=== PATIENT | male | born 1950 | race Caucasian/White ===

== ENCOUNTER → 2017-10-22 | Outpatient (CLI) | payer MEDICARE ==
[~2017-10-22] MED LIST: ASPI-555 PO; ATOR20TA65 PO; BLUE500T PO; FURO20TA6 PO; LOSA50TA37 PO; METO25TA6 PO; POTA8CAP10 PO; REGADENOSON 0.4 MG/5 ML PF SYG IVP SCH; TRAM50TA4 PO
== END | disposition home or self-care (01) ==
LOC: SHCH 09:01
PROVIDERS: ATTEND Internal Medicine Cardiovascular Disease
DX: I10 Essential (primary) hypertension (principal)
CPT/HCPCS: 78452; 93017; 96374; A9500 ×2; J2785

== ENCOUNTER 2017-11-23 05:52 | Inpatient (IN) | payer MEDICARE ==
[2017-11-19 16:38] VITALS: BP 182/89
[2017-11-19 16:44] LABS: BASOPHILS % (AUTO) 0.5 % (0.0-5.0); EOSINOPHILS % (AUTO) 0.7 % (0.0-8.0); HEMATOCRIT 46.2 % (42-54); MEAN CORPUSCULAR HEMOGLOBIN 31.5 pg (27.0-33.0); MEAN CORPUSCULAR HGB CONC 33.8 g/dL (32.0-36.0); MEAN CORPUSCULAR VOLUME 93.3 fL (79-99); MONOCYTES % (AUTO) 6.3 % (3.0-13.0); NEUTROPHILS % (AUTO) 69.5 % (40.0-77.0); PLATELET COUNT (AUTO) 257 K/uL (130-400); RED BLOOD CELL COUNT(AUTO) 4.95 MIL/uL (4.50-6.20); RED CELL DISTRIBUTION WIDTH 15.8 % (11.0-15.5); WHITE BLOOD COUNT (AUTO) 12.2 K/uL (4.8-10.8)
[2017-11-19 16:46] LABS: APPEARANCE,URINE Clear (CLEAR); BILIRUBIN,URINE Negative (NEGATIVE); COLOR,URINE Yellow (YELLOW); GLUCOSE, URINE (UA) Negative (NEGATIVE); KETONES,URINE Negative (NEGATIVE); LEUKOCYTE ESTERASE ,URINE Negative (NEGATIVE); NITRATE,URINE Negative (NEGATIVE); OCCULT BLOOD,URINE Negative (NEGATIVE); PH,URINE 5.5 (5.0-8.0); PROTEIN,URINE Negative (NEGATIVE); UROBILINOGEN,URINE 0.2 mg/dL (0.2-1.0)
[2017-11-19 16:56] LABS: CREATININE 1.1 mg/dL (0.5-1.5); POTASSIUM 4.2 mmol/L (3.5-5.1)
[2017-11-19 17:02] LABS: PARTIAL THROMBOPLASTIN TIME 31.6 SEC (26.3-35.5); PROTHROMBIN TIME 10.5 SEC (9.6-11.6)
[2017-11-23] VITALS (14 sets, daily range): BP systolic 116–174; BP diastolic 71–97
[~2017-11-23] VITALS: Ht 175.3 cm; Wt 86.5 kg
[~2017-11-23 05:52] MED LIST changes: -ATOR20TA65 PO; -FURO20TA6 PO; -METO25TA6 PO; -POTA8CAP10 PO; -REGADENOSON 0.4 MG/5 ML PF SYG IVP SCH; -TRAM50TA4 PO
[2017-11-23] MEDS ORDERED: SODIUM CHLORIDE 0.9% 1000ML 1,000 ML IV ONE (07:42)
[2017-11-23] MEDS ORDERED: NITROGLYCERIN 5 MG/ML 10 ML VIAL IV ONE (09:07)
[2017-11-23] MEDS ORDERED: LIDOCAINE HCL 1% 20 ML VIAL ONE (09:07)
[2017-11-23] MEDS ORDERED: BIVALIRUDIN 250 MG/VIAL IV ONE (09:07)
[2017-11-23] MEDS ORDERED: HEPARIN SODIUM 1000UNIT/ML 10ML VIAL ONE (09:07)
[2017-11-23] MEDS ORDERED: IOPAMIDOL-370 100 ML VIAL IV ONE ×2 (09:07)
[2017-11-23] MEDS ORDERED: ISOVUE-370 50ML VIAL IV ONE (09:07)
[2017-11-23] MEDS ORDERED: SODIUM CHLORIDE 0.9% 1000ML 1,000 ML IV SCH (10:07)
[2017-11-23] MEDS ORDERED: METO25TA6 PO (10:13)
[2017-11-23] MEDS: METOPROLOL TARTRATE 25 MG TAB PO SCH ×2 (10:57→20:57)
[2017-11-23] MEDS: WATER FOR INJECTION,STERILE 20 ML VIAL IJ SCH (13:30)
[2017-11-23] MEDS: CEFUROXIME SODIUM 1.5 GM VIAL IVP SCH (13:30)
[2017-11-23 14:40] LABS: HEMOGLOBIN A1C 6.3 % (4.0-6.0)
[2017-11-23 14:45] LABS: CHOLESTEROL 248 mg/dL (<200); HDL CHOLESTEROL 48 mg/dL (29-71); LDL DIRECT 163 mg/dL (0-99); TRIGLYCERIDES 324 mg/dL (30-200)
[2017-11-24] VITALS (29 sets, daily range): BP systolic 81–177; BP diastolic 45–82
[2017-11-24] MEDS ORDERED: ACETAMINOPHEN 325 MG TAB PO PRN ×2 (01:15→10:00)
[2017-11-24] MEDS ORDERED: POTASSIUM CHLORIDE 20MEQ/100ML 100 ML IV PRN (01:15)
[2017-11-24] MEDS ORDERED: LIDOCAINE HCL-MPF 1% 2ML VIAL IVP PRN (01:15)
[2017-11-24] MEDS ORDERED: ONDANSETRON HCL MDV 20ML 2 MG/ML VIAL IVP PRN (01:15)
[2017-11-24] MEDS ORDERED: MORPHINE SULFATE 2 MG/ML 1ML SYG IVP PRN ×2 (01:15)
[2017-11-24] MEDS ORDERED: POTASSIUM CHLORIDE 20 MEQ ERTAB PO PRN (01:15)
[2017-11-24] MEDS ORDERED: LACTULOSE 20 GM/30 ML UDCUP PO PRN (01:15)
[2017-11-24] MEDS ORDERED: POTASSIUM CHLORIDE 10% ELIXIR 20 MEQ/15 ML UDCUP PO PRN (01:15)
[2017-11-24 04:53] LABS: BASOPHILS % (AUTO) 0.1 % (0.0-5.0); EOSINOPHILS % (AUTO) 1.5 % (0.0-8.0); HEMATOCRIT 44.5 % (42-54); LYMPHOCYTES % (AUTO) 29.3 % (21.0-51.0); MEAN CORPUSCULAR HEMOGLOBIN 31.9 pg (27.0-33.0); MEAN CORPUSCULAR HGB CONC 34.4 g/dL (32.0-36.0); MEAN CORPUSCULAR VOLUME 92.8 fL (79-99); MONOCYTES % (AUTO) 8.3 % (3.0-13.0); NEUTROPHILS % (AUTO) 60.8 % (40.0-77.0); NUCLEATED RED BLOOD CELLS 0.1 % (0.0-0.19); PLATELET COUNT (AUTO) 235 K/uL (130-400); WHITE BLOOD COUNT (AUTO) 8.7 K/uL (4.8-10.8)
[2017-11-24 04:54] LABS: INR 1.02 (0.85-1.15); PARTIAL THROMBOPLASTIN TIME 31.1 SEC (26.3-35.5); PROTHROMBIN TIME 10.7 SEC (9.6-11.6)
[2017-11-24 05:03] LABS: ALBUMIN 3.6 g/dL (3.5-5.0); BILIRUBIN,TOTAL 0.7 mg/dL (0.2-1.0); CREATININE 1.1 mg/dL (0.5-1.5); POTASSIUM 4.1 mmol/L (3.5-5.1); TOTAL PROTEIN, SERUM 7.4 g/dL (6.0-8.3)
[2017-11-24] MEDS ORDERED: PAPAVERINE HCL 30 MG/ML 2ML VIAL ONE (07:20)
[2017-11-24] MEDS ORDERED: SODIUM CHLORIDE 0.9% 1000ML 1,000 ML IV ONE (07:20)
[2017-11-24] MEDS ORDERED: OCTYL 2-CYANOACRYLATE 1 EACH TP ONE (07:20)
[2017-11-24] MEDS ORDERED: BACITRACIN 50,000 UNIT VIAL ONE (07:21)
[2017-11-24] MEDS ORDERED: AMIODARONE HCL 900MG/18ML IV ONE (07:40)
[2017-11-24] MEDS ORDERED: HEPARIN SODIUM 1000UNIT/ML 10ML VIAL ONE ×2 (07:40→08:10)
[2017-11-24] MEDS ORDERED: PROPOFOL 10 MG/ML 20ML VIAL IV ONE (07:40)
[2017-11-24] MEDS ORDERED: ROCURONIUM BROMIDE 10MG/1ML 5ML VL ONE (07:40)
[2017-11-24] MEDS ORDERED: PROTAMINE SULFATE 10 MG/ML 25ML VIAL IV ONE (07:40)
[2017-11-24] MEDS ORDERED: AMINOCAPROIC ACID 250 MG/ML 20 ML VIAL IV ONE (07:40)
[2017-11-24] MEDS ORDERED: LIDOCAINE PF 2% 5ML ABBOJECT ONE (07:40)
[2017-11-24] MEDS ORDERED: EPINEPHRINE 1 MG/ML AMPULE ONE (07:40)
[2017-11-24] MEDS ORDERED: ESMOLOL HCL 10 MG/ML 10 ML VIAL ONE (07:40)
[2017-11-24] MEDS ORDERED: MILRINONE-D5W 20 MG/100 ML 0 ML IV ONE (07:40)
[2017-11-24] MEDS ORDERED: NOREPINEPHRINE BITARTRATE 1 MG/1 ML ML IV ONE (07:40)
[2017-11-24] MEDS ORDERED: GLYCOPYRROLATE 0.2 MG/ML 5 ML VIAL ONE (07:40)
[2017-11-24] MEDS ORDERED: MIDAZOLAM HCL 1 MG/ML 5ML VIAL ONE (07:41)
[2017-11-24] MEDS ORDERED: FENTANYL CITRATE PF 50 MCG/1 ML 5ML AMP IV ONE (07:42)
[2017-11-24] MEDS ORDERED: NITROGLYCERIN 50 MG/D5% WATER 1 BOT ONE (07:44)
[2017-11-24] MEDS: WATER FOR INJECTION,STERILE 20 ML VIAL IJ SCH (07:48)
[2017-11-24] MEDS: CEFUROXIME SODIUM 1.5 GM VIAL IVP SCH ×3 (07:48→18:26)
[2017-11-24] MEDS ORDERED: THROMBIN-JMI 5000 UNIT/VIAL TP ONE (08:10)
[2017-11-24 08:32] LABS: ABG BASE EXCESS -4.3 mmol/L (-2.0-3.0); ABG HCO3 20.1 mmol/L (21.0-28.0); ABG OXYGEN SATURATION 99.1 % (95.0-99.0); ABG PCO2 35 mmHg (35-48)
[2017-11-24] MEDS ORDERED: SODIUM BICARB 50MEQ 50ML VIAL ONE ×2 (08:38→11:53)
[2017-11-24] MEDS ORDERED: FAMOTIDINE 20MG TAB 20 MG TAB PO SCH (09:00)
[2017-11-24] MEDS ORDERED: CEFUROXIME 1.5GM+NS 100ML 100 ML IV SCH ×2 (09:00→18:00)
[2017-11-24 09:24] LABS: ABG BASE EXCESS -1.5 mmol/L (-2.0-3.0); ABG HCO3 23.1 mmol/L (21.0-28.0); ABG OXYGEN SATURATION 99.3 % (95.0-99.0); ABG PCO2 39 mmHg (35-48)
[2017-11-24] MEDS ORDERED: SODIUM CHLORIDE 0.9% 500ML 500 ML IV SCH (09:56)
[2017-11-24] MEDS ORDERED: INSULIN REGULAR, HUMAN 3ML 100 UNIT in SODIUM CHLORIDE 0.9% 99 ML IV SCH ×2 (10:00)
[2017-11-24] MEDS ORDERED: DEXTROSE 50%-WATER 50 ML DISP.SYRIN IV PRN (10:00)
[2017-11-24] MEDS ORDERED: ONDANSETRON HCL 4 MG/2 ML VIAL IV PRN (10:00)
[2017-11-24] MEDS ORDERED: POTASSIUM PHOS 15 mMOL+NS250ML 250 ML IV PRN (10:00)
[2017-11-24] MEDS ORDERED: CALCIUM GLUCONATE 1 GM in SODIUM CHLORIDE 0.9% 50 ML IV PRN (10:00)
[2017-11-24] MEDS ORDERED: NICARDIPINE HCL 100 MG in SODIUM CHLORIDE 0.9% 100 ML IV PRN (10:00)
[2017-11-24] MEDS ORDERED: MAGNESIUM 2GM PREMIX 50ML 50 ML IV PRN (10:00)
[2017-11-24] MEDS ORDERED: GLUCAGON 1MG KIT 1 MG ML IM PRN (10:00)
[2017-11-24] MEDS ORDERED: SODIUM CHLORIDE 0.9% 250 ML IV PRN (10:00)
[2017-11-24] MEDS ORDERED: AMINOCAPROIC ACID 15,000 MG in SODIUM CHLORIDE 0.9% 250 ML IV SCH (10:00)
[2017-11-24] MEDS ORDERED: SODIUM CHLORIDE 0.9% 1000ML 1,000 ML IV SCH (10:00)
[2017-11-24] MEDS ORDERED: PROPOFOL 1000 MG/100 ML 100 ML IV PRN (10:00)
[2017-11-24] MEDS ORDERED: SODIUM BICARB 8.4% 50ML SYRINGE IV PRN (10:00)
[2017-11-24] MEDS ORDERED: SODIUM CHLORIDE 0.9% 10 ML VIAL IVP PRN (10:00)
[2017-11-24] MEDS ORDERED: ACETAMINOPHEN 650 MG SUPPOSITORY RC PRN (10:00)
[2017-11-24] MEDS ORDERED: NITROGLYCERIN 50 MG/D5% WATER 250 BOT IV SCH (10:00)
[2017-11-24] MEDS ORDERED: NOREPINEPHRINE 4MG/NS 250ML 250 ML IV PRN (10:00)
[2017-11-24] MEDS ORDERED: EPINEPHRINE 2 MG in SODIUM CHLORIDE 0.9% 250 ML IV PRN (10:00)
[2017-11-24] MEDS ORDERED: MORPHINE SULFATE 4 MG/1ML SYG IV PRN (10:00)
[2017-11-24] MEDS ORDERED: MORPHINE SULFATE 2 MG/ML 1ML SYG IV PRN (10:00)
[2017-11-24] MEDS ORDERED: ALBUMIN (HUMAN) 5% 250 ML IV PRN (10:00)
[2017-11-24] MEDS ORDERED: ONDANSETRON HCL MDV 20ML 2 MG/ML VIAL IV PRN (10:11)
[2017-11-24] MEDS ORDERED: SODIUM BICARB 8.4% 50ML SYRINGE ONE ×3 (10:33→10:55)
[2017-11-24 10:47] LABS: ABG BASE EXCESS -13.3 mmol/L (-2.0-3.0); ABG OXYGEN SATURATION 99.1 % (95.0-99.0); ABG PCO2 37 mmHg (35-48)
[2017-11-24 11:08] LABS: ABG BASE EXCESS 0.6 mmol/L (-2.0-3.0); ABG HCO3 24.7 mmol/L (21.0-28.0); ABG OXYGEN SATURATION 98.8 % (95.0-99.0); ABG PCO2 38 mmHg (35-48)
[2017-11-24] MEDS ORDERED: DURAMORPH PF1 MG/ML 10ML AMP IV ONE (11:09)
[2017-11-24 11:51] LABS: ABG BASE EXCESS -7.3 mmol/L (-2.0-3.0); ABG HCO3 19.2 mmol/L (21.0-28.0); ABG OXYGEN SATURATION 93.3 % (95.0-99.0); ABG PCO2 42 mmHg (35-48)
[2017-11-24 12:00] LABS: HEMATOCRIT 40.7 % (42-54); MEAN CORPUSCULAR HEMOGLOBIN 31.2 pg (27.0-33.0); MEAN CORPUSCULAR VOLUME 94.6 fL (79-99); NUCLEATED RED BLOOD CELLS 0.1 % (0.0-0.19); PLATELET COUNT (AUTO) 258 K/uL (130-400); RED CELL DISTRIBUTION WIDTH 15.4 % (11.0-15.5); WHITE BLOOD COUNT (AUTO) 27.3 K/uL (4.8-10.8)
[2017-11-24 12:16] LABS: CREATININE 1.5 mg/dL (0.5-1.5); MAGNESIUM 1.9 mg/dL (1.80-2.40); PHOSPHORUS 5.7 mg/dL (2.5-4.9); POTASSIUM 3.5 mmol/L (3.5-5.1)
[2017-11-24] MEDS: POTASSIUM CHLORIDE 20MEQ/100ML 100 ML IV PRN ×4 (13:05→23:49)
[2017-11-24 15:06] LABS: ABG BASE EXCESS 0.7 mmol/L (-2.0-3.0); ABG HCO3 25.1 mmol/L (21.0-28.0); ABG OXYGEN SATURATION 96.8 % (95.0-99.0); ABG PCO2 40 mmHg (35-48)
[2017-11-24] MEDS: HYDROCODONE/ACETAMINOPHEN 5/325 MG TAB PO PRN ×2 (16:51→21:30)
[2017-11-24 22:05] LABS: MAGNESIUM 2.3 mg/dL (1.80-2.40); POTASSIUM 3.8 mmol/L (3.5-5.1)
[2017-11-25] VITALS (24 sets, daily range): BP systolic 93–114; BP diastolic 52–72
[2017-11-25] MEDS: HYDROCODONE/ACETAMINOPHEN 5/325 MG TAB PO PRN ×3 (03:19→11:48)
[2017-11-25 04:22] LABS: HEMATOCRIT 37.5 % (42-54); MEAN CORPUSCULAR HEMOGLOBIN 33.2 pg (27.0-33.0); MEAN CORPUSCULAR HGB CONC 35.6 g/dL (32.0-36.0); MEAN CORPUSCULAR VOLUME 93.1 fL (79-99); PLATELET COUNT (AUTO) 222 K/uL (130-400); RED BLOOD CELL COUNT(AUTO) 4.03 MIL/uL (4.50-6.20); RED CELL DISTRIBUTION WIDTH 15.8 % (11.0-15.5); WHITE BLOOD COUNT (AUTO) 18.5 K/uL (4.8-10.8)
[2017-11-25 05:06] LABS: CREATININE 1.2 mg/dL (0.5-1.5); MAGNESIUM 2.3 mg/dL (1.80-2.40); PHOSPHORUS 3.2 mg/dL (2.5-4.9); POTASSIUM 3.9 mmol/L (3.5-5.1)
[2017-11-25] MEDS: POTASSIUM CHLORIDE 20MEQ/100ML 100 ML IV PRN (05:45)
[2017-11-25] MEDS: CEFUROXIME SODIUM 1.5 GM VIAL IVP SCH ×2 (05:45→17:32)
[2017-11-25] MEDS: PANTOPRAZOLE SODIUM 40 MG TABLET.DR PO SCH (09:05)
[2017-11-25] MEDS ORDERED: KETOROLAC TROMETHAMINE 15MG/ML IM PRN (13:15)
[2017-11-25] MEDS ORDERED: KETOROLAC TROMETHAMINE 15MG/ML ONE (13:23)
[2017-11-25] MEDS: KETOROLAC TROMETHAMINE 15MG/ML IV SCH ×2 (13:25→18:07)
[2017-11-25] MEDS: IPRATROPIUM/ALBUTEROL SULFATE 3 ML SOLUTION IH SCH ×2 (18:45→23:18)
[2017-11-25] MEDS: ATORVASTATIN CALCIUM 20 MG TABLET PO SCH (20:28)
[2017-11-26] VITALS (12 sets, daily range): BP systolic 86–131; BP diastolic 54–77
[2017-11-26] MEDS: KETOROLAC TROMETHAMINE 15MG/ML IV SCH ×4 (01:01→20:31)
[2017-11-26 04:52] LABS: HEMATOCRIT 35.1 % (42-54); MEAN CORPUSCULAR HEMOGLOBIN 31.5 pg (27.0-33.0); MEAN CORPUSCULAR HGB CONC 33.7 g/dL (32.0-36.0); MEAN CORPUSCULAR VOLUME 93.6 fL (79-99); PLATELET COUNT (AUTO) 168 K/uL (130-400); RED BLOOD CELL COUNT(AUTO) 3.75 MIL/uL (4.50-6.20); RED CELL DISTRIBUTION WIDTH 15.8 % (11.0-15.5); WHITE BLOOD COUNT (AUTO) 17.6 K/uL (4.8-10.8)
[2017-11-26 05:07] LABS: CREATININE 1.2 mg/dL (0.5-1.5); POTASSIUM 3.7 mmol/L (3.5-5.1)
[2017-11-26] MEDS: IPRATROPIUM/ALBUTEROL SULFATE 3 ML SOLUTION IH SCH ×4 (06:37→23:38)
[2017-11-26] MEDS: TRAMADOL HCL 50 MG TABLET PO PRN (07:31)
[2017-11-26] MEDS: PANTOPRAZOLE SODIUM 40 MG TABLET.DR PO SCH (08:37)
[2017-11-26] MEDS: ASPIRIN 81MG TAB.CHEW PO SCH (08:37)
[2017-11-26] MEDS ORDERED: CALCIUM GLUCONATE 1 GM/10 ML VIAL IV SCH (09:15)
[2017-11-26] MEDS: ATORVASTATIN CALCIUM 20 MG TABLET PO SCH (20:30)
[2017-11-26] MEDS: METOPROLOL TARTRATE 25 MG TAB PO SCH (20:31)
[2017-11-27 03:35] LABS: HEMATOCRIT 33.2 % (42-54); MEAN CORPUSCULAR HEMOGLOBIN 32.8 pg (27.0-33.0); MEAN CORPUSCULAR HGB CONC 35.3 g/dL (32.0-36.0); PLATELET COUNT (AUTO) 154 K/uL (130-400); RED BLOOD CELL COUNT(AUTO) 3.57 MIL/uL (4.50-6.20); WHITE BLOOD COUNT (AUTO) 15.1 K/uL (4.8-10.8)
[2017-11-27 03:46] LABS: CREATININE 1.1 mg/dL (0.5-1.5); POTASSIUM 3.4 mmol/L (3.5-5.1)
[2017-11-27 03:57] VITALS: BP 113/73
[2017-11-27] MEDS: KETOROLAC TROMETHAMINE 15MG/ML IV SCH ×2 (04:09→08:17)
[2017-11-27] MEDS: IPRATROPIUM/ALBUTEROL SULFATE 3 ML SOLUTION IH SCH ×4 (06:40→23:55)
[2017-11-27] MEDS ORDERED: LIDOCAINE HCL-MPF 1% 2ML VIAL IVP PRN (06:45)
[2017-11-27] MEDS ORDERED: POTASSIUM CHLORIDE 10% ELIXIR 20 MEQ/15 ML UDCUP PO PRN (06:45)
[2017-11-27] MEDS ORDERED: POTASSIUM CHLORIDE 20MEQ/100ML 100 ML IV PRN (06:45)
[2017-11-27 07:18] VITALS: BP 90/60
[2017-11-27] MEDS: ASPIRIN 81MG TAB.CHEW PO SCH (08:17)
[2017-11-27] MEDS: PANTOPRAZOLE SODIUM 40 MG TABLET.DR PO SCH (08:17)
[2017-11-27] MEDS: METOPROLOL TARTRATE 25 MG TAB PO SCH ×2 (08:18→20:22)
[2017-11-27] MEDS: ENOXAPARIN SODIUM 60 MG/0.6 ML SQ SCH (08:24)
[2017-11-27] MEDS: POTASSIUM CHLORIDE 20 MEQ ERTAB PO PRN ×2 (10:56→11:57)
[2017-11-27] MEDS ORDERED: ALBUMIN (HUMAN) 25% 50 ML IV SCH (11:00)
[2017-11-27 11:18] VITALS: BP 89/56
[2017-11-27] MEDS: ACETYLCYSTEINE 20% 200MG/ML 4ML VIAL IH SCH ×2 (11:24→23:55)
[2017-11-27] MEDS ORDERED: FUROSEMIDE 20 MG TABLET PO SCH (12:00)
[2017-11-27 15:40] VITALS: BP 92/55
[2017-11-27 20:03] VITALS: BP 110/61
[2017-11-27] MEDS: ATORVASTATIN CALCIUM 20 MG TABLET PO SCH (20:21)
[2017-11-28] VITALS (7 sets, daily range): BP systolic 102–125; BP diastolic 65–78
[2017-11-28 03:54] LABS: HEMATOCRIT 31.8 % (42-54); MEAN CORPUSCULAR HEMOGLOBIN 31.9 pg (27.0-33.0); MEAN CORPUSCULAR HGB CONC 34.1 g/dL (32.0-36.0); MEAN CORPUSCULAR VOLUME 93.4 fL (79-99); PLATELET COUNT (AUTO) 171 K/uL (130-400); RED BLOOD CELL COUNT(AUTO) 3.41 MIL/uL (4.50-6.20); RED CELL DISTRIBUTION WIDTH 15.1 % (11.0-15.5); WHITE BLOOD COUNT (AUTO) 11.3 K/uL (4.8-10.8)
[2017-11-28 04:06] LABS: MAGNESIUM 1.9 mg/dL (1.80-2.40); POTASSIUM 3.8 mmol/L (3.5-5.1)
[2017-11-28] MEDS: TRAMADOL HCL 50 MG TABLET PO PRN ×2 (06:06→18:44)
[2017-11-28] MEDS: IPRATROPIUM/ALBUTEROL SULFATE 3 ML SOLUTION IH SCH ×4 (06:33→23:32)
[2017-11-28] MEDS: ACETYLCYSTEINE 20% 200MG/ML 4ML VIAL IH SCH (06:33)
[2017-11-28] MEDS: ASPIRIN 81MG TAB.CHEW PO SCH (07:44)
[2017-11-28] MEDS: PANTOPRAZOLE SODIUM 40 MG TABLET.DR PO SCH (07:44)
[2017-11-28] MEDS: METOPROLOL TARTRATE 25 MG TAB PO SCH ×2 (07:44→20:15)
[2017-11-28] MEDS: ENOXAPARIN SODIUM 60 MG/0.6 ML SQ SCH (07:45)
[2017-11-28] MEDS ORDERED: FUROSEMIDE 20 MG TABLET PO SCH (09:00)
[2017-11-28] MEDS ORDERED: POTASSIUM CHLORIDE 20 MEQ ERTAB PO SCH (09:00)
[2017-11-28] MEDS ORDERED: CALCIUM GLUCONATE 1 GM in DEXTROSE 5%-WATER 50 ML IV SCH (11:45)
[2017-11-28] MEDS ORDERED: ACETYLCYSTEINE 20% 200MG/ML 4ML VIAL IH SCH (14:00)
[2017-11-28] MEDS ORDERED: COMPOUND PO MISCELLANEOUS 1 EACH MISC MISC PRN (15:45)
[2017-11-28] MEDS ORDERED: ACETYLCYSTEINE 20% 200MG/ML 4ML VIAL ONE (18:06)
[2017-11-28] MEDS: FUROSEMIDE 20 MG TABLET PO SCH (20:14)
[2017-11-28] MEDS: ATORVASTATIN CALCIUM 20 MG TABLET PO SCH (20:14)
[2017-11-28] MEDS: POTASSIUM CHLORIDE 20 MEQ ERTAB PO SCH (20:14)
[2017-11-28] MEDS ORDERED: CALCIUM GLUCONATE 1 GM/10 ML VIAL IV SCH (21:00)
[2017-11-28] MEDS: ACETYLCYSTEINE 10% 100MG/ML 4ML VIAL PO SCH (23:32)
[2017-11-29] MEDS: TRAMADOL HCL 50 MG TABLET PO PRN ×4 (00:07→20:49)
[2017-11-29 03:35] VITALS: BP 106/69
[2017-11-29] MEDS: ACETYLCYSTEINE 10% 100MG/ML 4ML VIAL PO SCH ×2 (06:00→12:09)
[2017-11-29] MEDS: IPRATROPIUM/ALBUTEROL SULFATE 3 ML SOLUTION IH SCH ×4 (06:18→23:23)
[2017-11-29 07:05] VITALS: BP 114/73
[2017-11-29] MEDS: ENOXAPARIN SODIUM 60 MG/0.6 ML SQ SCH (07:19)
[2017-11-29] MEDS: FUROSEMIDE 20 MG TABLET PO SCH ×2 (07:19→20:40)
[2017-11-29] MEDS: POTASSIUM CHLORIDE 20 MEQ ERTAB PO SCH ×2 (07:19→20:40)
[2017-11-29] MEDS: PANTOPRAZOLE SODIUM 40 MG TABLET.DR PO SCH (07:19)
[2017-11-29] MEDS: ASPIRIN 81MG TAB.CHEW PO SCH (07:19)
[2017-11-29] MEDS: METOPROLOL TARTRATE 25 MG TAB PO SCH ×2 (07:19→20:41)
[2017-11-29] MEDS: ACETYLCYSTEINE 20% 200MG/ML 4ML VIAL IH SCH ×3 (10:53→23:23)
[2017-11-29] MEDS ORDERED: ACETYLCYSTEINE 20% 200MG/ML 4ML VIAL ONE (11:18)
[2017-11-29 11:55] VITALS: BP 108/48
[2017-11-29 15:50] VITALS: BP 105/71
[2017-11-29] MEDS ORDERED: CALCIUM GLUCONATE 1 GM/10 ML VIAL IV SCH (18:45)
[2017-11-29] MEDS ORDERED: CALCIUM GLUCONATE 1 GM in SODIUM CHLORIDE 0.9% 50 ML IV SCH (19:00)
[2017-11-29 19:24] VITALS: BP 116/57
[2017-11-29] MEDS: ATORVASTATIN CALCIUM 20 MG TABLET PO SCH (20:40)
[2017-11-29 23:54] VITALS: BP 112/65
[2017-11-30 03:30] VITALS: BP 105/69
[2017-11-30 04:00] LABS: POTASSIUM 4.2 mmol/L (3.5-5.1)
[2017-11-30] MEDS: IPRATROPIUM/ALBUTEROL SULFATE 3 ML SOLUTION IH SCH ×3 (06:33→18:18)
[2017-11-30] MEDS ORDERED: FURO20TA6 PO (07:26)
[2017-11-30] MEDS ORDERED: ATOR20TA65 PO (07:26)
[2017-11-30] MEDS ORDERED: TRAM50TA4 PO (07:26)
[2017-11-30] MEDS ORDERED: METO25TA6 PO (07:27)
[2017-11-30] MEDS ORDERED: POTA8CAP10 PO (07:28)
[2017-11-30 07:47] VITALS: BP 116/72
[2017-11-30] MEDS: FUROSEMIDE 20 MG TABLET PO SCH (08:31)
[2017-11-30] MEDS: ASPIRIN 81MG TAB.CHEW PO SCH (08:31)
[2017-11-30] MEDS: PANTOPRAZOLE SODIUM 40 MG TABLET.DR PO SCH (08:31)
[2017-11-30] MEDS: ENOXAPARIN SODIUM 60 MG/0.6 ML SQ SCH (08:32)
[2017-11-30] MEDS: POTASSIUM CHLORIDE 20 MEQ ERTAB PO SCH (08:32)
[2017-11-30] MEDS: METOPROLOL TARTRATE 25 MG TAB PO SCH (08:32)
[2017-11-30] MEDS ORDERED: SPIRONOLACTONE 25 MG TAB PO SCH (09:00)
[2017-11-30 11:33] VITALS: BP 109/64
[2017-11-30 16:00] VITALS: BP 104/64
[2017-11-30] MEDS: TRAMADOL HCL 50 MG TABLET PO PRN (17:25)
== END 2017-11-30 19:10 | disposition home or self-care (01) | DRG 234 ==
LOC: DAH 05:52 → DAHIP 05:53 → 2AH 14:22 → 2CV 11-24 08:19 → 2CH 11-25 05:16 → 2DH 11-27 15:09
PROVIDERS: ADMIT Internal Medicine; ATTEND Family Medicine
PROC: 4A023N7 Measurement of Cardiac Sampling and Pressure, Left Heart, Percutaneous Approach (ICD-10-PCS; principal; 2017-11-23)
PROC: B2151ZZ Fluoroscopy of Left Heart using Low Osmolar Contrast (ICD-10-PCS; 2017-11-23)
PROC: B2111ZZ Fluoroscopy of Multiple Coronary Arteries using Low Osmolar Contrast (ICD-10-PCS; 2017-11-23)
PROC: 02100Z9 Bypass Coronary Artery, One Artery from Left Internal Mammary, Open Approach (ICD-10-PCS; 2017-11-24)
PROC: 021209W Bypass Coronary Artery, Three Arteries from Aorta with Autologous Venous Tissue, Open Approach (ICD-10-PCS; 2017-11-24)
PROC: 06BQ4ZZ Excision of Left Saphenous Vein, Percutaneous Endoscopic Approach (ICD-10-PCS; 2017-11-24)
DX: I21.4 Non-ST elevation (NSTEMI) myocardial infarction (principal); E83.51 Hypocalcemia; D62 Acute posthemorrhagic anemia; I25.110 Atherosclerotic heart disease of native coronary artery with unstable angina pectoris; D72.829 Elevated white blood cell count, unspecified; E78.5 Hyperlipidemia, unspecified; E87.6 Hypokalemia; I10 Essential (primary) hypertension; I25.2 Old myocardial infarction; K21.9 Gastro-esophageal reflux disease without esophagitis; K27.9 Peptic ulcer, site unspecified, unspecified as acute or chronic, without hemorrhage or perforation; Z82.49 Family history of ischemic heart disease and other diseases of the circulatory system; Z87.891 Personal history of nicotine dependence
CPT/HCPCS: 36415; 36600; 71045; 80048; 80053; 80061; 81003; 82330; 82435; 82803; 82947; 82948; 83036; 83605; 83735; 84100; 84132; 84295; 85018; 85025; 85027; 85347; 85610; 85730; 86850; 86900; 86901; 86922; 93005; 93458; 93880; 94002; 94010; 94150; 94640; 94664; 94667; 94668; 97039; A4218; A4606; A7048; C1760; C1894; J0171; J0282; J0583; J0610; J0697; J1644; J1650; J1815; J1885; J2001; J2250; J2260; J2274; J2440; J2704; J2720; J3010; J3475; J3480; J3490; J7030; J7040; J7060; J7120; J7608; P9045; P9047; Q9967

== ENCOUNTER → 2021-04-05 | Outpatient (CLI) | payer OTHER ==
[~2021-04-05] MED LIST changes: -ASPI-555 PO; +ASPI-556 PO; +ATOR20TA65 PO; -BLUE500T PO; +FURO20TA6 PO; +GADOTERATE MEGLUMINE 10 MMOL/20 ML VIAL IV ONE; -LOSA50TA37 PO; +METO25TA6 PO; +POTA8CAP20 PO; +TRAM50TA4 PO
== END | disposition home or self-care (01) ==
LOC: RAH 08:29
PROVIDERS: ATTEND Family Medicine
DX: H53.2 Diplopia (principal)
CPT/HCPCS: 70553; A9575

== ENCOUNTER → 2023-11-26 | Outpatient (CLI) | payer OTHER ==
[~2023-11-26] MED LIST changes: -GADOTERATE MEGLUMINE 10 MMOL/20 ML VIAL IV ONE
[2023-11-26 12:28] LABS: ALBUMIN 4.2 g/dL (3.5-5.0); POTASSIUM 4.6 mmol/L (3.5-5.1); TOTAL PROTEIN, SERUM 7.6 g/dL (6.0-8.3)
== END | disposition home or self-care (01) ==
LOC: LAB 11-25 12:55
PROVIDERS: ATTEND Internal Medicine Cardiovascular Disease
DX: I10 Essential (primary) hypertension (principal); E78.5 Hyperlipidemia, unspecified
CPT/HCPCS: 36415; 80053; 80061

== ENCOUNTER 2024-03-21 06:45 | Day surgery (SDC) | payer OTHER ==
[2024-03-17 13:07] VITALS: BP 136/75; PULSE 56; RESP 18
[2024-03-17 13:08] LABS: BASOPHILS # (AUTO) 0.01 K/uL (0.00-0.20); BASOPHILS % (AUTO) 0.1 % (0.0-5.0); EOSINOPHILS # (AUTO) 0.24 K/uL (0.00-0.70); EOSINOPHILS % (AUTO) 2.6 % (0.0-8.0); HEMATOCRIT 48.2 % (42-54); IMMATURE GRANULOCYTE ABSOLUTE 0.03 K/uL (0-1); LYMPHOCYTES % (AUTO) 31.7 % (21.0-51.0); MEAN CORPUSCULAR HEMOGLOBIN 31.7 pg (27.0-33.0); MONOCYTES # (AUTO) 0.9 K/uL (0.1-1.0); MONOCYTES % (AUTO) 9.7 % (3.0-13.0); NEUTROPHILS # (AUTO) 5.2 K/uL (1.8-7.7); NEUTROPHILS % (AUTO) 55.6 % (40.0-77.0); PLATELET COUNT (AUTO) 203 K/uL (130-400); RED BLOOD CELL COUNT(AUTO) 5.02 MIL/uL (4.50-6.20); RED CELL DISTRIBUTION WIDTH 13.6 % (11.0-15.5); WHITE BLOOD COUNT (AUTO) 9.4 K/uL (4.8-10.8)
[2024-03-17 13:18] LABS: CREATININE 1.1 mg/dL (0.5-1.3)
[2024-03-17 13:19] LABS: INR 1.09 (0.85-1.15); PROTHROMBIN TIME 11.7 SEC (9.6-11.6)
[2024-03-17 13:20] LABS: PARTIAL THROMBOPLASTIN TIME 32.9 SEC (26.3-35.5)
[2024-03-21] VITALS (18 sets, daily range): BP systolic 121–147; BP diastolic 60–78; PULSE 54–62; RESP 12–21
[~2024-03-21] VITALS: Ht 172.7 cm; Wt 79.7 kg
[~2024-03-21 06:45] MED LIST changes: +ATOR-2 PO; -ATOR20TA65 PO; +DAPA10TA PO; -FURO20TA6 PO; +METF-446 PO; -METO25TA6 PO; +MULT-1367 PO; +PIND5 PO; -POTA8CAP20 PO; -TRAM50TA4 PO
[2024-03-21] MEDS: 0.9%NACL 1000ML 1,000 ML IV ONE (07:48)
[2024-03-21] MEDS: CEFAZOLIN SODIUM 2 GM VIAL ONE (07:48)
[2024-03-21] MEDS ORDERED: HYDROMORPHONE 1 MG INJ ONE (08:36)
[2024-03-21] MEDS ORDERED: ACETAMINOPHEN 1,000 MG/100 ML VIAL IV ONE (08:37)
[2024-03-21] MEDS ORDERED: MIDAZOLAM HCL 1 MG/ML 2ML VIAL ONE (08:40)
[2024-03-21] MEDS ORDERED: FENTANYL CITRATE PF 50 MCG/1 ML 2ML VIAL ONE (08:41)
[2024-03-21] MEDS ORDERED: PROPOFOL 10 MG/ML 20ML VIAL IV ONE (08:41)
[2024-03-21] MEDS ORDERED: LIDOCAINE PF 100MG/5ML (2%) SYRINGE 5ML ONE (08:41)
[2024-03-21] MEDS ORDERED: ROCURONIUM BROMIDE 10MG/1ML 5ML VL ONE (08:41)
[2024-03-21] MEDS: CEFAZOLIN SODIUM 2 GM VIAL IVPB ONE (08:59)
[2024-03-21] MEDS ORDERED: ONDANSETRON 4MG INJ ONE (09:02)
[2024-03-21] MEDS ORDERED: DEXAMETHASONE SOD PHOSPHATE 4 MG/ML 1ML VIAL ONE (09:02)
[2024-03-21] MEDS ORDERED: EPHEDRINE SULFATE 50 MG/ML AMPULE ONE (09:03)
[2024-03-21] MEDS: BUPIVACAINE/PF 0.25% 30ML VIAL IJ ONE (09:28)
[2024-03-21] MEDS ORDERED: PHENYLEPHRINE HCL 10 MG/ML 1ML VIAL IV ONE (09:43)
[2024-03-21] MEDS ORDERED: NEOSTIGMINE METHYLSULFATE 1MG/ML IV ONE (10:24)
[2024-03-21] MEDS ORDERED: GLYCOPYRROLATE 0.2 MG/ML 5 ML VIAL ONE (10:24)
[2024-03-21] MEDS: KETOROLAC 15MG/ML VIAL (15MG/ML) ONE (12:29)
[2024-03-22] MEDS ORDERED: IBUP-2077 PO (04:35)
[2024-03-24] MEDS ORDERED: POLY17PO4 PO (16:10)
== END 2024-03-21 12:55 | disposition home or self-care (01) ==
LOC: DAH 06:45
PROVIDERS: ATTEND Surgery
DX: K40.20 Bilateral inguinal hernia, without obstruction or gangrene, not specified as recurrent (principal); E11.65 Type 2 diabetes mellitus with hyperglycemia; I11.0 Hypertensive heart disease with heart failure; I50.9 Heart failure, unspecified; I25.10 Atherosclerotic heart disease of native coronary artery without angina pectoris; J44.9 Chronic obstructive pulmonary disease, unspecified; Z98.890 Other specified postprocedural states; Z79.899 Other long term (current) drug therapy
CPT/HCPCS: 49650; S2900; 36415; 80048; 82948; 85025; 85610; 85730; 93005; A4344; J1100; J1170; J1885; J2001; J2250; J2371; J2405; J2704; J2710; J3010; J3490; J7030; A4215; A4221; A4222; A4223; A4600; A4663; A6260; C1781; J0665; J0690

== ENCOUNTER → 2024-04-06 | Outpatient (CLI) | payer OTHER ==
[~2024-04-06] MED LIST changes: +POLY17PO4 PO
== END | disposition home or self-care (01) ==
LOC: RAH 14:48
PROVIDERS: ATTEND Surgery
DX: N44.2 Benign cyst of testis (principal); N50.3 Cyst of epididymis; N43.3 Hydrocele, unspecified; N50.82 Scrotal pain
CPT/HCPCS: 76870

== ENCOUNTER → 2024-06-21 | Outpatient (CLI) | payer OTHER ==
[2024-06-21 12:25] LABS: ALBUMIN 4.1 g/dL (3.5-5.0); BILIRUBIN,TOTAL 0.6 mg/dL (0.2-1.0); CREATININE 1.2 mg/dL (0.5-1.3); POTASSIUM 4.8 mmol/L (3.5-5.1); TOTAL PROTEIN, SERUM 7.8 g/dL (6.0-8.3)
== END | disposition home or self-care (01) ==
LOC: LAB 08:55
PROVIDERS: ATTEND Internal Medicine Cardiovascular Disease
DX: I25.810 Atherosclerosis of coronary artery bypass graft(s) without angina pectoris (principal); I50.22 Chronic systolic (congestive) heart failure; E78.2 Mixed hyperlipidemia
CPT/HCPCS: 36415; 80053; 80061

== ENCOUNTER → 2024-08-15 | Outpatient (CLI) | payer OTHER ==
[2024-08-15 12:11] LABS: CREATININE 1.1 mg/dL (0.5-1.3)
== END | disposition home or self-care (01) ==
LOC: LAB 08:12
PROVIDERS: ATTEND Internal Medicine Cardiovascular Disease
DX: I50.22 Chronic systolic (congestive) heart failure (principal)
CPT/HCPCS: 36415; 80048

== ENCOUNTER → 2024-10-10 | Outpatient (CLI) | payer OTHER ==
[2024-10-10 13:13] LABS: CREATININE 1.1 mg/dL (0.5-1.3); MAGNESIUM 2.4 mg/dL (1.80-2.40); POTASSIUM 4.9 mmol/L (3.5-5.1)
== END | disposition home or self-care (01) ==
LOC: LAB 09:58
PROVIDERS: ATTEND Internal Medicine Cardiovascular Disease
DX: I25.810 Atherosclerosis of coronary artery bypass graft(s) without angina pectoris (principal); I50.22 Chronic systolic (congestive) heart failure; E78.5 Hyperlipidemia, unspecified
CPT/HCPCS: 36415; 80048; 83735; 83880

== ENCOUNTER → 2024-11-01 | Outpatient (CLI) | payer OTHER ==
[2024-11-01 12:12] LABS: CREATININE 1.2 mg/dL (0.5-1.3)
== END | disposition home or self-care (01) ==
LOC: LAB 10:22
PROVIDERS: ATTEND Internal Medicine Cardiovascular Disease
DX: I11.0 Hypertensive heart disease with heart failure (principal); I50.22 Chronic systolic (congestive) heart failure
CPT/HCPCS: 36415; 80048

== ENCOUNTER → 2024-11-16 | Outpatient (CLI) | payer OTHER ==
[2024-11-16 13:36] LABS: CREATININE 1.4 mg/dL (0.5-1.3); POTASSIUM 4.5 mmol/L (3.5-5.1)
== END | disposition home or self-care (01) ==
LOC: LAB 09:00
PROVIDERS: ATTEND Internal Medicine Cardiovascular Disease
DX: I50.22 Chronic systolic (congestive) heart failure (principal)
CPT/HCPCS: 36415; 80048

== ENCOUNTER → 2024-12-13 | Outpatient (CLI) | payer OTHER ==
[2024-12-13 12:25] LABS: CREATININE 1.3 mg/dL (0.5-1.3); POTASSIUM 5.4 mmol/L (3.5-5.1)
== END | disposition home or self-care (01) ==
LOC: LAB 09:45
PROVIDERS: ATTEND Internal Medicine Cardiovascular Disease
DX: I11.0 Hypertensive heart disease with heart failure (principal); I50.22 Chronic systolic (congestive) heart failure
CPT/HCPCS: 36415; 80048

== ENCOUNTER → 2024-12-27 | Outpatient (CLI) | payer OTHER ==
[2024-12-27 12:09] LABS: CREATININE 1.2 mg/dL (0.5-1.3); MAGNESIUM 2.3 mg/dL (1.80-2.40); POTASSIUM 4.8 mmol/L (3.5-5.1)
== END | disposition home or self-care (01) ==
LOC: LAB 09:47
PROVIDERS: ATTEND Internal Medicine Cardiovascular Disease
DX: I50.22 Chronic systolic (congestive) heart failure (principal); E78.5 Hyperlipidemia, unspecified
CPT/HCPCS: 36415; 80048; 83735